=== PATIENT | female | born 1955 | race Caucasian/White ===

== ENCOUNTER → 2016-08-26 | Outpatient (CLI) | payer MEDICAID ==
--- NOTE | 2016-08-29 09:39 | MM ---
Reason for exam: follow-up at short interval from prior study. Last mammogram was performed 9 months ago. History: Patient is postmenopausal. MG discontinued stereo core RT of the right breast, January 01, 2016. Excisional biopsy of the left breast, July 2010. Took estrogen for 3 years. Took progesterone for 3 years. Physical Findings: Nurse did not find any significant physical abnormalities on exam. MG 3D Diag Mammo W/Cad RT CC and MLO view(s) were taken of the right breast. Prior study comparison: November 20, 2015, right breast MG 3d work up w/cad RT. November 06, 2015, bilateral MG 3d screening mammo w/cad. There are scattered fibroglandular densities. There is stable chronic nodularity in the right breast. No significant new findings when compared with previous films. These results were verbally communicated with the patient and result sheet given to the patient on 08/26/16. ASSESSMENT: Benign, BI-RAD 2 RECOMMENDATION: Follow-up diagnostic mammogram of both breasts in 6 months.
== END | disposition home or self-care (01) ==
LOC: RADMAMWWP 14:24
PROVIDERS: ATTEND Obstetrics & Gynecology
DX: R92.8 Other abnormal and inconclusive findings on diagnostic imaging of breast (principal)
CPT/HCPCS: G0206; G0279

== ENCOUNTER → 2017-04-05 | Outpatient (CLI) | payer MEDICAID ==
[2017-04-05 17:01] LABS: Basophils % (A) 0 %; CH 30.4; CHCM 32.6; Eosinophils % (A) 0 %; HDW 2.55; HGB 14.9 gm/dL (11.4-16.0); Luc # (Auto) 0.09; Luc % (Auto) 1; Lymphocytes # (A) 1.2 k/uL (1.0-4.8); Lymphocytes % (A) 11 %; MCH 30.4 pg (25.0-35.0); MCHC 32.4 g/dL (31.0-37.0); MCV 93.9 fL (80.0-100.0); Mean Platelet Volume 7.8; Monocytes # (A) 0.7 k/uL (0-1.0); Monocytes % (A) 6 %; Neutrophils % (A) 81 %; RDW 15.5 % (11.5-15.5); WBC 11.1 k/uL (3.8-10.6); WBC (Perox) 10.87
[2017-04-05 17:26] LABS: ALT 32 U/L (9-52); AST 11 U/L (14-36); Alkaline Phosphatase 77 U/L (38-126); Anion Gap 7 mmol/L; Blood Urea Nitrogen 19 mg/dL (7-17); Calcium 9.9 mg/dL (8.4-10.2); Carbon Dioxide 29 mmol/L (22-30); Chloride 100 mmol/L (98-107); Glucose 100 mg/dL (74-99); Non-African American GFR(MDRD) >60 (>60 ml/min/1.73 sqM); Sodium 136 mmol/L (137-145); Total Bilirubin 0.6 mg/dL (0.2-1.3); Total Protein 7.3 g/dL (6.3-8.2)
== END | disposition home or self-care (01) ==
LOC: LABWHC1 16:08
PROVIDERS: ATTEND Family Medicine
DX: J45.909 Unspecified asthma, uncomplicated (principal); E03.9 Hypothyroidism, unspecified; E55.9 Vitamin D deficiency, unspecified
CPT/HCPCS: 36415; 80053; 82306; 84443; 85025

== ENCOUNTER → 2017-04-19 | Outpatient (CLI) | payer MEDICAID ==
--- NOTE | 2017-04-24 09:03 | MM ---
Reason for exam: follow-up at short interval from prior study. Last mammogram was performed 8 months ago. History: Patient is postmenopausal. MG discontinued stereo core RT of the right breast, January 01, 2016. Excisional biopsy of the left breast, July 2010. Took estrogen for 3 years. Took progesterone for 3 years. Physical Findings: Nurse did not find any significant physical abnormalities on exam. MG 3D Diag Mammo W/Cad ESSIE Bilateral CC and MLO view(s) were taken. Prior study comparison: August 26, 2016, right breast MG 3d diag mammo w/cad RT. November 20, 2015, right breast MG 3d work up w/cad RT. November 20, 2015, right breast US breast workup limited RT. The breast tissue is almost entirely fat. No suspicious abnormality. No significant new findings when compared with previous films. These results were verbally communicated with the patient and result sheet given to the patient on 04/19/17. ASSESSMENT: Negative, BI-RAD 1 RECOMMENDATION: Routine screening mammogram of both breasts in 1 year.
== END | disposition home or self-care (01) ==
LOC: RADMAMWWP 13:46
PROVIDERS: ATTEND Family Medicine
DX: R92.8 Other abnormal and inconclusive findings on diagnostic imaging of breast (principal)
CPT/HCPCS: G0204; G0279

== ENCOUNTER → 2017-11-09 | Outpatient (CLI) | payer MEDICAID ==
--- NOTE | 2017-11-09 08:34 | US ---
EXAMINATION TYPE: US transvaginal DATE OF EXAM: 11/09/2017 COMPARISON: NONE CLINICAL HISTORY: R10.2 Pelvic pain. Partial hysterectomy x 1991. Left side pain. TECHNIQUE: Transvaginal (TV). Date of LMP: Uterus removed EXAM MEASUREMENTS: Right Ovary: 2.3 x 1.0 x 0.8 cm Left Ovary: 1.8 x 0.6 x 0.9 cm 1. Uterus: Surgically absent 2. Endometrium: Surgically absent 3. Right Ovary: wnl 4. Left Ovary: wnl 5. Bilateral Adnexa: wnl 6. Posterior cul-de-sac: No free fluid IMPRESSION: Remnant ovaries are felt unremarkable for postmenopausal female. Uterus is surgically abs ent. No suspicious finding is seen to account for patient's symptoms.
== END | disposition home or self-care (01) ==
LOC: RADUSWWP 07:27
PROVIDERS: ATTEND Obstetrics & Gynecology
DX: R10.2 Pelvic and perineal pain (principal); Z90.711 Acquired absence of uterus with remaining cervical stump
CPT/HCPCS: 76830

== ENCOUNTER → 2018-06-21 | Outpatient (CLI) | payer MEDICAID ==
--- NOTE | 2018-06-21 21:48 | MR ---
EXAMINATION TYPE: MR knee LT wo con DATE OF EXAM: 06/21/2018 COMPARISON: None HISTORY: Left Knee Pain with Swelling x1 Year TECHNIQUE: Multiplanar, multisequence imaging of the left knee is performed without IV contrast. FINDINGS: MEDIAL MENISCUS: There is increased signal within the posterior horn medial meniscus. Anterior horn m edial meniscus appears normal. LATERAL MENISCUS: Anterior and posterior horns are intact without tear. CRUCIATE LIGAMENTS: Posterior cruciate ligament is intact. Anterior cruciate ligament appears intact through its visualized course. The insertion on the tibia has mild increased signal. There is some di ffuse thickening with signal change within the substance of the anterior cruciate ligament on sagitta l T2-weighted sequences. Some strain could be considered. No deviation of the fibers are evident. The re is thickening of the anterior cruciate ligament. COLLATERAL LIGAMENTS: The medial collateral ligament and lateral collateral ligament complex are inta ct and unremarkable. EXTENSOR MECHANISM: Visualized quadriceps and patellar tendons are intact. EFFUSION: No significant suprapatellar joint effusion. POPLITEAL CYST: No popliteal/hyde cyst. TRICOMPARTMENT SPACES: Preserved CARTILAGE: Mild thinning of the articular cartilage is present diffusely. This includes medial latera l compartments. Patellofemoral compartment space articular cartilage appears relatively preserved. BONE MARROW SIGNAL: No focal abnormal marrow signal is appreciated. Note is made of a posterior super ior patellar spur. OTHER: No additional significant abnormality is appreciated. IMPRESSION: 1. Thickening of the anterior cruciate ligament without complete tear. Strain versus partial tear sh ould be considered. 2. Internal derangement posterior horn medial meniscus. 3. Mild osteoarthritic degenerative changes of the articular cartilage.
== END | disposition home or self-care (01) ==
LOC: RADMRIMAIN 20:45
PROVIDERS: ATTEND Family Medicine
DX: M17.12 Unilateral primary osteoarthritis, left knee (principal); M23.322 Other meniscus derangements, posterior horn of medial meniscus, left knee

== ENCOUNTER → 2018-07-11 | Outpatient (CLI) | payer MEDICAID ==
--- NOTE | 2018-07-12 09:12 | XR ---
EXAMINATION TYPE: XR chest 2V DATE OF EXAM: 07/11/2018 COMPARISON: Prior chest x-ray 06/24/2013 HISTORY: Dyspnea on exertion TECHNIQUE: Frontal and lateral views of the chest are obtained. FINDINGS: There is no focal air space opacity, pleural effusion, or pneumothorax seen. The cardiac silhouette size is within normal limits. The osseous structures are intact. IMPRESSION: No acute cardiopulmonary process.
== END | disposition home or self-care (01) ==
LOC: RADXRMAIN 17:26
PROVIDERS: ATTEND Family Medicine
DX: R06.09 Other forms of dyspnea (principal)
CPT/HCPCS: 71046

== ENCOUNTER → 2018-08-06 | Outpatient (CLI) | payer MEDICAID | LOC: LABPAT 11:24 | PROVIDERS: ATTEND Orthopaedic Surgery | DX: Z53.9 Procedure and treatment not carried out, unspecified reason (principal) ==

== ENCOUNTER → 2018-08-06 | Outpatient (CLI) | payer MEDICAID ==
[2018-08-06 12:20] LABS: Basophils % (A) 1 %; Eosinophils # (A) 0.3 k/uL (0-0.7); Eosinophils % (A) 6 %; HCT 41.9 % (34.0-46.0); HGB 13.5 gm/dL (11.4-16.0); Lymphocytes # (A) 1.1 k/uL (1.0-4.8); Lymphocytes % (A) 25 %; MCH 30.1 pg (25.0-35.0); MCHC 32.1 g/dL (31.0-37.0); MCV 93.8 fL (80.0-100.0); Mean Platelet Volume 7.3; Monocytes # (A) 0.2 k/uL (0-1.0); Monocytes % (A) 5 %; Neutrophils # (A) 2.6 k/uL (1.3-7.7); Neutrophils % (A) 62 %; Platelet Count 261 k/uL (150-450); RBC 4.47 m/uL (3.80-5.40); WBC 4.3 k/uL (3.8-10.6)
[2018-08-06 18:44] LABS: Albumin 4.1 g/dL (3.80-4.90); Albumin/Globulin Ratio 1.95 (1.60-3.17); Anion Gap 7.1 mmol/L (4.00-12.00); Calcium 9.5 mg/dL (8.7-10.3); Carbon Dioxide 30.9 mmol/L (21.6-31.8); Globulin 2.1 g/dL (1.6-3.3); LDL Cholesterol,Calculated 152.6 mg/dL (0.0-131.0); Potassium 4.8 mmol/L (3.5-5.5); Total Bilirubin 0.6 mg/dL (0.2-1.2); Total Protein 6.2 g/dL (6.2-8.2); VLDL Calculation 26.4 mg/dL (5.00-40.00)
== END | disposition home or self-care (01) ==
LOC: LABWHC1 11:25
PROVIDERS: ATTEND Family Medicine
DX: E78.00 Pure hypercholesterolemia, unspecified (principal); R06.09 Other forms of dyspnea; E55.9 Vitamin D deficiency, unspecified
CPT/HCPCS: 36415; 80053; 80061; 82306; 84443; 85025

== ENCOUNTER 2018-08-09 09:57 | Day surgery (SDC) | payer MEDICAID ==
[2018-08-06 10:00] VITALS: BMI 29.9
--- NOTE | 2018-08-08 12:59 | HP ---
HISTORY AND PHYSICAL DATE OF SURGERY: 08/09/2018 Dayan Coronel is a 63-year-old patient seen with progressive left knee pain. We discussed treatment options. She elected to proceed with arthroscopy. Consent was obtained. PAST MEDICAL HISTORY: Her past medical history is hypothyroidism, gastroesophageal reflux disease. PAST SURGICAL HISTORY: Colonoscopy, right knee arthroscopy, lumpectomy, total abdominal hysterectomy. DAILY MEDICATIONS: 1. Celebrex. 2. Celexa. 3. Levothyroxine. 4. Singulair. ALLERGIES: PENICILLIN, HYDROCODONE, OXYCODONE, MACROBID, WELLBUTRIN. SOCIAL HISTORY: She denies current tobacco use. PHYSICAL EVALUATION: Physical evaluation of the left knee: Her range of motion is 0 to 125 degrees. There is a mild effusion. Tenderness along the medial joint line. Positive medial Teo's, +1 Kristen. Collateral ligaments stable. There is patellar crepitus on range of motion. Hip rotation without pain. Distal neurovascular exam is intact. Left knee radiographs revealed mild medial and moderate patellofemoral compartment osteoarthritis. An MRI of the left knee revealed abnormal of the medial meniscus as well as the anterior cruciate ligament. IMPRESSION: 1. Internal derangement, left knee with medial meniscal tear. 2. Asthma. 3. Hypothyroidism. PLAN: Left knee arthroscopy with partial meniscectomy and debridement. MMODL / IJN: [id number] /
[~2018-08-09 09:57] MED LIST: DEXAMETHASONE SOD PHOSPHATE 10 MG/ML 1 ML VIAL IV ONE; LACTATED RINGERS 1,000 ML IV SCH; LIDOCAINE 1% 20 ML VIAL (10MG/ML) FOR IV START INTRADERMA PRN; ONDANSETRON 4 MG/2 ML VIAL IVP ONE; SCOPOLAMINE 1.5MG/72HR PATCH TRANSDERM ONE; ceFAZolin IN SWFI 2 GM/20 ML SYRINGE IVP ONE
[2018-08-09] MEDS ORDERED: MIDAZOLAM 2 MG/2 ML VIAL ONE (11:14)
[2018-08-09] MEDS ORDERED: fentaNYL (PF) 50 MCG/ML 2 ML AMP ONE (11:14)
[2018-08-09] MEDS ORDERED: PROPOFOL 10 MG/ML 20 ML VIAL IV ONE (11:14)
[2018-08-09] MEDS ORDERED: LIDOCAINE 1% INJ 10MG/ML (20 ML MDV) ONE (11:14)
[2018-08-09] MEDS ORDERED: SUCCINYLCHOLINE CHLORIDE 100 MG/5 ML SYR IV ONE (11:14)
[2018-08-09] MEDS ORDERED: BUPIVACAINE (PF) 0.25% 30 ML VIAL SQ ONE ×2 (11:18→11:22)
[2018-08-09 12:20] VITALS: TEMP 97.2
--- NOTE | 2018-08-09 12:24 | P.OP ---
Date of Procedure: 08/09/18 Preoperative Diagnosis: Internal derangement left knee Postoperative Diagnosis: 1. Tear medial meniscus left knee 2. Grade 2/3 chondromalacia medial femoral condyle left knee 3. Reactive synovitis medial, lateral and suprapatellar compartments left knee Procedure(s) Performed: 1. Arthroscopic partial medial meniscectomy left knee 2. Arthroscopic chondroplasty medial femoral condyle left knee 3. Arthroscopic partial synovectomy medial, lateral and suprapatellar compartments left knee Anesthesia: GETA, local Surgeon: Kenrick Benitez Estimated Blood Loss (ml): 5 Pathology: none sent Condition: stable Disposition: PACU Indications for Procedure: 63-year-old patient seen with progressive left knee pain. After treatment options were discussed, she elected to proceed with arthroscopy. Operative Findings: See description of procedure Description of Procedure: Patient was taken to the operative suite. Patient underwent a general anesthetic by the department of anesthesia. Patient was given preoperative antibiotics. The left lower extremity was placed in a well-padded arthroscopic leg rios. The left leg was prepped and draped in the normal sterile orthopedic fashion. A lateral parapatellar and suprapatellar incision was made. Trochars were inserted. Arthroscopy was initiated. Suprapatellar pouch veal diffuse thick reactive synovitis. The patellofemoral joint appeared to articulate congruently. There was grade 1 chondromalacia with no osteochondral tears present. The scope was guided into the medial gutter. No loose body or plica were identified. The scope was then guided into the medial compartment. A medial parapatellar incision was made. Trocar inserted followed by probe. There was a complex tear involving the posterior horn medial meniscus. There were grade 2/3 chondromalacia changes of the medial femoral condyle with diffuse osteochondral tears present. There was reactive synovitis anteriorly. I performed a partial medial meniscectomy getting down to stable meniscal tissue. I performed a chondroplasty of the medial femoral condyle down to stable tissue. I performed a partial synovectomy decompressing reactive synovitis. The residual meniscus was stable. The residual osteochondral surface appears stable. There was good decompression of the reactive synovitis. Scope and probe were then guided into the intercondylar notch. Cruciates were identified, probed and found to be stable. The scope and probe were then guided into lateral compartment. Lateral meniscus was probed and found be stable. The lateral femoral condyle and tibial plateau. Unremarkable. There was thick reactive synovitis anteriorly. I performed a partial synovectomy decompressing that reactive synovitis lateral compartment. There was good decompression of the synovitis. The scope was in guided back into the suprapatellar compartment. I introduced a motorized shaver into the suprapatellar compartment. I debrided some piecemeal fragments of meniscus I encountered. I performed a partial synovectomy decompressing the thick reactive synovitis in the suprapatellar compartment. There was good decompression of the synovitis. I took one more look around the entire knee, no residual debris. Instruments were now removed from the joint. The joint was infiltrated with .25% Marcaine. Steri-Strips were applied to the portal sites. Sterile dressings were applied. The patient was placed into a PIEDAD hose. No tourniquet was utilized. The patient was awakened, transferred to a bed and taken to recovery stable satisfactory condition.
[2018-08-09] MEDS: fentaNYL (PF) 50 MCG/ML 2 ML AMP IV PRN ×3 (12:25→12:59)
[2018-08-09] MEDS ORDERED: Acetaminophen-Codeine 300-30mg TAB PO ONE (13:35)
[2018-08-09 14:24] VITALS: BP 131/82; PULSE 85; RESP 16
== END 2018-08-09 14:45 | disposition home or self-care (01) ==
LOC: OR 09:57
PROVIDERS: ATTEND Orthopaedic Surgery
DX: S83.232A Complex tear of medial meniscus, current injury, left knee, initial encounter (principal); M94.262 Chondromalacia, left knee; M65.88 Other synovitis and tenosynovitis, other site; E03.9 Hypothyroidism, unspecified; K21.9 Gastro-esophageal reflux disease without esophagitis; J45.909 Unspecified asthma, uncomplicated; F41.9 Anxiety disorder, unspecified; M17.12 Unilateral primary osteoarthritis, left knee; Z79.890 Hormone replacement therapy; Z79.899 Other long term (current) drug therapy; Z88.5 Allergy status to narcotic agent; Z88.0 Allergy status to penicillin; Z88.8 Allergy status to other drugs, medicaments and biological substances
CPT/HCPCS: 29881; 29876; J2250; J1100; J2405; J2001; J3010; J0330; J2704; J0690

== ENCOUNTER → 2018-09-21 | Outpatient (CLI) | payer MEDICAID ==
--- NOTE | 2018-09-23 14:51 | MR ---
EXAMINATION TYPE: MR knee LT wo con DATE OF EXAM: 09/21/2018 COMPARISON: MRI of the left knee dated 06/21/2018 HISTORY: Pain in left knee, Meniscus repair 3-2018 TECHNIQUE: Multiplanar, multisequence imaging of the left knee is performed without IV contrast. FINDINGS: MEDIAL MENISCUS: There remains obliquely oriented increased PD signal within the posterior horn of th e medial meniscus as seen on the prior exam of 06/21/2018 however this patient is status post meniscal repair and this may be postoperative in nature. Blunting of the free edge is likely from a meniscect sylvia. LATERAL MENISCUS: Anterior and posterior horns are intact without tear. However there is slight incre ased signal of the anterior root of the lateral meniscus, likely meniscal myxoid degeneration. CRUCIATE LIGAMENTS: The anterior and posterior cruciate ligaments are intact with signal of the anter ior cruciate ligament throughout. COLLATERAL LIGAMENTS: The medial collateral ligament and lateral collateral ligament complex are inta ct and unremarkable. EXTENSOR MECHANISM: Visualized quadriceps and patellar tendons are intact. EFFUSION: There is a new small to moderate suprapatellar joint effusion without significant internal complexity. POPLITEAL CYST: No popliteal/hyde cyst. TRICOMPARTMENT SPACES: Very mild medial compartment joint space narrowing is seen. Tricompartmental s mall osteophytes are present. CARTILAGE: Partial-thickness cartilaginous defect of the medial femoral condyle at its weightbearing surface measures 1.8 cm. Partial-thickness chondral defect of the lateral compartment also within the weightbearing surface measures 7 mm. Subchondral cystic change is seen of the patella as there is a full-thickness cartilaginous defect of the medial facet measuring approximately 1.3 cm and focal fissuring of the lateral facet. Trochlear cartilage is slightly heterogenous. BONE MARROW SIGNAL: There is new bone marrow edema of the medial femoral condyle in comparison to the prior exam. Cranial caudal extent of 2.7 cm in anterior posterior extent of 3.8 cm. Bone marrow nupur a is also seen of the medial femoral condyle posteriorly and is new. OTHER: The medial patellofemoral retinaculum at its posterior aspect appears discontinuous however t here is no significant undulation. Focal mild overlying subcutaneous edema is noted. No lateral shetty lar tracking. Some high signal is seen of the semimembranosus with surrounding fluid and of the popli teus tendon. IMPRESSION: 1. New 2.7 x 3.8 cm area of bone marrow edema of the medial femoral condyle and small area of bone ma rrow edema in the posterior medial tibial plateau. 2. New small to moderate suprapatellar joint effusion. 3. Mild tricompartmental arthrosis and moderate chondrosis with full-thickness cartilaginous defect o f the medial patellar facet and partial thickness cartilaginous defects of the medial femoral condyle and to a lesser degree at the lateral femoral condyle. 4. Similar increased signal of the medial meniscus however given the recent surgical intervention fin dings are likely on the basis of partial meniscectomy. 5. Similar increased signal throughout the anterior cruciate ligament favors mid to high-grade sprain .
== END | disposition home or self-care (01) ==
LOC: RADMRIMAIN 16:27
PROVIDERS: ATTEND Orthopaedic Surgery
DX: M17.12 Unilateral primary osteoarthritis, left knee (principal); M94.8X6 Other specified disorders of cartilage, lower leg; R93.6 Abnormal findings on diagnostic imaging of limbs

== ENCOUNTER → 2018-10-01 | Outpatient (CLI) | payer MEDICAID ==
--- NOTE | 2018-10-03 08:42 | MM ---
Reason for exam: screening (asymptomatic). Last mammogram was performed 1 year and 5 months ago. History: Patient is postmenopausal. MG discontinued stereo core RT of the right breast, January 01, 2016. Excisional biopsy of the right breast, July 2010. Took estrogen for 3 years. Took progesterone for 3 years. Physical Findings: A clinical breast exam by your physician is recommended on an annual basis and results should be correlated with mammographic findings. MG 3D Screening Mammo W/Cad Bilateral CC and MLO view(s) were taken. Prior study comparison: April 19, 2017, bilateral MG 3d diag mammo w/cad ESSIE. August 26, 2016, right breast MG 3d diag mammo w/cad RT. There are scattered fibroglandular densities. No significant changes when compared with prior studies. ASSESSMENT: Negative, BI-RAD 1 RECOMMENDATION: Routine screening mammogram of both breasts in 1 year.
--- NOTE | 2018-10-03 16:39 | BD ---
EXAMINATION TYPE: Axial Bone Density DATE OF EXAM: 10/01/2018 COMPARISON: 11.20.2015 CLINICAL HISTORY: 63 YR OLD FEMALE...ICD-10 CODE: M89.9 DISORDER OF BONE Height: 63.9 Weight: 184 FRAX RISK QUESTIONS: Glucocorticoids (More than 3mos): YES, FOR ASTHMA (Ex: prednisone, prednisolone, methylprednisolone, dexamethasone, and hydrocortisone). History of Fracture in Adulthood: YES RISK FACTORS HISTORY OF: HX OF RT FOOT FRACTURE Family History of Osteoporosis: YES HER PATERNAL AUNTS, Postmenopausal woman: HYST AT 37 YRS OLD, HORMONAL ABOUT 50 YRS OLD Take estrogen and/or progesterone medications: HORMONES IN THE PAST FOR ABOUT 8YRS, ESTRADIAL CREAM N OW FOR ABOUT A YEAR MEDICATIONS: Prednisone or other steroids: INHALER FOR ASTHMA, QVAR, FOR MANY YRS Thyroid Medications: YES, SYNTHROID, FOR ABOUT 10 + YRS Additional Medications: CELEXA AND XANAX PM, REFLUX MEDS PRN, Additional History: ASTHMA, EXAM MEASUREMENTS: Bone mineral densitometry was performed using the [employer] System. Bone mineral density as measured about the Lumbar spine is: ----- L1-L4(G/cm2): 1.158 T Score Values are as follows: ----- L1: -0.6 ----- L2: -0.4 ----- L3: 0.4 ----- L4: 1.0 ----- L1-L4: 0.2 Bone mineral density has: Increased 11.3% since study of: 10.29.2015 Bone mineral density about the R hip (g/cm2): 0.825 Bone mineral density about the L hip (g/cm2): 0.897 T Score values are as follows: -----R Neck: -1.6 -----L Neck: -1.3 -----R Total: -1.4 -----L Total: -0.9 Bone mineral density has: Decreased -0.3% since study of: 10.29.2015 FRAX%s: THERE IS A 22.2% CHANCE FOR A MAJOR OSTEOPOROTIC FX AND A 2.7% FOR HIP.....PROBABILITY OF F X IN 10 YRS TIME IMPRESSION: Osteopenia (T Score between -2.5 and -1). There is slightly increased risk of fracture and the patient may be considered for treatment. Re-Screen 2-5 years. NOTE: T-SCORE=SD OF THE YOUNG ADULT MEAN.
== END ==
LOC: RADMAMWWP 14:39
PROVIDERS: ATTEND Obstetrics & Gynecology
DX: Z12.31 Encounter for screening mammogram for malignant neoplasm of breast (principal); M89.9 Disorder of bone, unspecified; M85.80 Other specified disorders of bone density and structure, unspecified site
CPT/HCPCS: 77063; 77067; 77080

== ENCOUNTER → 2018-10-25 | Outpatient (CLI) | payer MEDICAID ==
[2018-10-25 14:12] LABS: Basophils # (A) 0.1 k/uL (0-0.2); Basophils % (A) 1 %; Eosinophils # (A) 0.3 k/uL (0-0.7); Eosinophils % (A) 6 %; HCT 41.7 % (34.0-46.0); HGB 13.7 gm/dL (11.4-16.0); Lymphocytes % (A) 18 %; MCH 29.9 pg (25.0-35.0); MCV 90.6 fL (80.0-100.0); Mean Platelet Volume 7.8; Monocytes # (A) 0.4 k/uL (0-1.0); Monocytes % (A) 7 %; Neutrophils # (A) 3.8 k/uL (1.3-7.7); Neutrophils % (A) 67 %; Platelet Count 288 k/uL (150-450); RDW 14.2 % (11.5-15.5); WBC 5.7 k/uL (3.8-10.6)
[2018-10-25 14:18] LABS: INR 0.9 (<1.2); Partial Thromboplastin Time 24.9 sec (22.0-30.0); Prothrombin Time 9.7 sec (9.0-12.0)
[2018-10-25 14:27] LABS: Potassium 4.4 mmol/L (3.5-5.1)
== END | disposition home or self-care (01) ==
LOC: LABPAT 13:29
PROVIDERS: ATTEND Orthopaedic Surgery
DX: Z01.812 Encounter for preprocedural laboratory examination (principal); E03.9 Hypothyroidism, unspecified
CPT/HCPCS: 80051; 84443; 85025; 85610; 85730; 87070

== ENCOUNTER 2018-11-05 11:19 | Observation (INO) | payer MEDICAID ==
[2018-10-29 15:52] VITALS: BMI 30.9
--- NOTE | 2018-11-04 21:09 | HP ---
HISTORY AND PHYSICAL REASON FOR ADMISSION: Surgery is scheduled for 11/05/2018. Dayan Woo is a 63-year-old patient seen with symptomatic left knee osteoarthritis. We discussed treatment options. She elected to proceed left total knee arthroplasty. Consent was obtained. Medical clearance provided by Dr. Anette Diza. PAST MEDICAL HISTORY: Hypothyroidism, gastroesophageal reflux disease, anxiety, asthma. PAST SURGICAL HISTORY: Right knee arthroscopy. Colonoscopy, lumpectomy, total abdominal hysterectomy. MEDICATIONS: Celexa, levothyroxine, Singulair, ibuprofen. ALLERGIES: PENICILLIN, EFFEXOR, OXYCODONE, MACROBID, WELLBUTRIN. SOCIAL HISTORY: She denies tobacco use. PHYSICAL EXAMINATION: Evaluation of the left knee range of motion is 0 to 120 degrees. There is a mild effusion. Tenderness medial joint line. Crepitus medial and patellofemoral compartments with range of motion. Pain with patellofemoral compression. Ligaments stable. Hip rotation without pain. Distal neurovascular exam is intact. RADIOGRAPHS: Left knee radiographs revealed moderate osteoarthritic changes. Left knee MRI revealed full-thickness cartilage defects of the patella, medial femoral condyle. IMPRESSION: 1. Symptomatic left knee osteoarthritis. 2. Hypothyroidism. 3. Asthma. 4. Gastroesophageal reflux disease. PLAN: Left total knee arthroplasty. Surgery scheduled for 11/05/2018. MMODL / IJN: [id number] /
[~2018-11-05 11:19] MED LIST changes: +ACETAMINOPHEN TAB 500 MG TAB PO ONE; -LACTATED RINGERS 1,000 ML IV SCH; +MELOXICAM 7.5 MG TAB PO ONE; +TRANEXAMIC ACID 1,000 MG in SODIUM CHLORIDE 0.9% 100 ML IVPB ONE
[2018-11-05] MEDS ORDERED: MIDAZOLAM (PF) 2 MG/2 ML VIAL IVP ONE (12:05)
[2018-11-05] MEDS: LACTATED RINGERS 1,000 ML IV SCH ×2 (12:20→22:28)
[2018-11-05] MEDS ORDERED: ROPIVACAINE 246.25 MG, EPINEPHrine 0.5 MG, KETOROLAC 30 MG, cloNIDine HCL/PF 80 MCG, WA... MISCELLANE ONE ×5 (12:31)
[2018-11-05] MEDS ORDERED: SUCCINYLCHOLINE CHLORIDE 100 MG/5 ML SYR IV ONE (13:15)
[2018-11-05] MEDS ORDERED: LIDOCAINE 1% INJ 10MG/ML (20 ML MDV) ONE (13:15)
[2018-11-05] MEDS ORDERED: TRANEXAMIC ACID 1,000 MG/10 ML VIAL ONE (13:15)
[2018-11-05] MEDS ORDERED: PROPOFOL 10 MG/ML 20 ML VIAL IV ONE (13:15)
[2018-11-05] MEDS ORDERED: fentaNYL (PF) 50 MCG/ML 2 ML AMP ONE (13:15)
[2018-11-05] MEDS ORDERED: PHENYLEPHRINE-0.9% NACL SYG 1 MG/10 ML SYRINGE ONE (13:15)
[2018-11-05] MEDS ORDERED: MIDAZOLAM 2 MG/2 ML VIAL ONE (13:15)
[2018-11-05] MEDS ORDERED: SODIUM CHLORIDE 0.9% 100 ML BAG ONE (13:15)
[2018-11-05] MEDS ORDERED: ceFAZolin 3,000 MG in SODIUM CHLORIDE 0.9% IRRIGATIO 3,000 ML IRRIGATION ONE (13:49)
[2018-11-05] MEDS ORDERED: LACTATED RINGERS 1,000 ML IV ONE (14:32)
[2018-11-05] MEDS ORDERED: NALOXONE 0.4 MG/ML 1 ML VIAL IV PRN (15:03)
[2018-11-05] MEDS ORDERED: HYDROcodone/APAP 5-325MG 1 EACH TAB PO PRN ×2 (15:03)
[2018-11-05] MEDS ORDERED: HYDROmorphone 1 MG/ML 1 ML SYRINGE IVP PRN (15:03)
[2018-11-05] MEDS ORDERED: HYDROmorphone 0.5 MG/0.5 ML SYRINGE IVP PRN (15:03)
[2018-11-05] MEDS ORDERED: ONDANSETRON 4 MG/2 ML VIAL IVP PRN (15:03)
--- NOTE | 2018-11-05 15:03 | P.OP ---
Date of Procedure: 11/05/18 Preoperative Diagnosis: Left knee osteoarthritis Postoperative Diagnosis: Left knee osteoarthritis Procedure(s) Performed: Left total knee arthroplasty Implants: 1. Microport evolution size 4 left MP cemented femur 2. Microport evolution size 4 left cemented tibial baseplate 3. Microport evolution MP/CS 10 mm polyethylene tibial insert 4. Microport advance 29 mm all polyethylene cemented patella Anesthesia: GETA, regional (Adductor canal catheter), local Surgeon: Kenrick Benitez Clay Machine Operator #1: Skinny Zaidi Estimated Blood Loss (ml): 50 Pathology: other (Bone) Condition: stable Disposition: PACU Indications for Procedure: 63-year-old patient seen with symptomatic left knee osteoarthritis. After having treatment options discussed, she elected to proceed with left total knee arthroplasty. Operative Findings: see description of procedure Description of Procedure: Patient was taken to the operative suite after having an adductor canal catheter placed by the department of anesthesia for postoperative pain management. Patient underwent a general anesthetic by the department of anesthesia. Patient was given preoperative IV intake antibiotics and TXA. A well-padded tourniquet was placed about the left lower extremity. The lower extremity was then prepped and draped in the normal sterile orthopedic fashion. The extremity was elevated, a tourniquet was insufflated to 300. A standard anterior incision was made sharply through skin. Dissection was taken down through the subcutaneous soft tissues down to the extensor mechanism. A medial arthrotomy was performed, patella was everted and knee was flexed. There was advanced osteoarthritis noted. I introduced my distal intramedullary femoral drill. I then introduced the distal femoral cutting jig. Kyle KNOWLES secured the cutting jig with 2 pins. I held retractors in position while Kyle KNOWLES performed the distal femoral resection through the guide area we now removed her distal femoral cutting guide. We now placed our 4-in-1 femoral cutting block and positioned and it was secured with 2 pins by Kyle KNOWLES while I held the block in position. The distal femoral finishing was now completed. A proximal tibial cutting guide was positioned. I held the guide in the appropriate position with both hands well Kyle KNOWLES inserted stabilizing pins into the guide. Proxim al tibial cut was made. We now placed a trial femoral component into position, along with an appropriate size tibial tray and insert. We now took the knee through range of motion and had full extension good flexion and good overall soft tissue balance noted. The patella was everted and stabilized with 2 towel clips held by Kyle KNOWLES while I performed a flush with patellar quad tendon utilizing a fresh sawblade. We templated the patella, appropriate drill holes were made. An appropriate trial patella was positioned, knee was taken through full range of motion with the patella tracking very nicely. The trial patella was removed. Drill holes were made through the femoral component. All trial components were removed after marking off the appropriate rotation of the tibia. Retractors were now positioned along the proximal tibia. An appropriate keel punch was made with the appropriate size tibial guide by myself on Kyle KNOWLES assisted by holding retractors. At this point appropriate size implants were chosen and opened. The joint was irrigated copiously with pulse lavage mechanical irrigation. The posterior capsule was infiltrated with local analgesic. The wound was irrigated with pulse lavage mechanical irrigation. We mixed antibiotic methylmethacrylate. We placed the knee into flexion. We placed multiple retractors assisted by Kyle KNOWLES to expose the proximal tibia. Once the methyl methacrylate was ready, the tibial component was cemented into place removing any excess methylmethacrylate form by both myself and Kyle KNOWLES. The femoral component was cemented into place removing the removing any excess methylmethacrylate performed by both myself and Kyle KNOWLES. We then inserted the appropriate size polyethylene tibial insert. We made sure that it was locked into position. We took the knee into full extension, and then back in a flexion making sure we had removed any excess methylmethacrylate. The patellar component was then cemented down and secured with clamp. Excess methylmethacrylate removed. We kept the knee in full extension, patellar clamp in position until methylmethacrylate had hardened. Once it had hardened the patellar clamp was removed. The knee was taken through full range of motion. The patella tracked nicely. There was good soft tissue balancing. The tourniquet was now released. Additional hemostasis was achieved via electrocautery. A second gram of TXA was given. The wound again was irrigated with pulse lavage mechanical irrigation. The superficial soft tissues were infiltrated local analgesic. The extensor mechanism was repaired with Vicryl. We checked the repair with range of motion and it was stable. The subcutaneous soft tissues were repaired with Vicryl in layers. The skin was a pproximated with pernio/Dermabond. Sterile dressings were applied followed by loose web roll and Bryon bandage. The patient was transferred to a bed, and taken to recovery in stable and satisfactory condition. Kyle KNOWLES assisted with this complex procedure.
[2018-11-05] MEDS ORDERED: ROPIVACAINE 1,100 MG, SODIUM CHLORIDE 0.9% 500 ML 330 ML MISCELLANE PRN ×2 (15:05)
[2018-11-05] MEDS: HYDROmorphone 0.5 MG/0.5 ML SYRINGE IVP PRN ×5 (15:42→22:29)
--- NOTE | 2018-11-05 15:48 | XR ---
EXAMINATION TYPE: XR knee limited LT DATE OF EXAM: 11/05/2018 COMPARISON: NONE TECHNIQUE: Two views submitted HISTORY: Post op FINDINGS: There is a prosthetic knee in near anatomic alignment. There is soft tissue edema and emphysema. IMPRESSION: 1. Postoperative change. Appears in near-anatomic alignment
[2018-11-05] MEDS ORDERED: fentaNYL (PF) 50 MCG/ML 2 ML AMP IV ONE (16:10)
--- NOTE | 2018-11-05 20:52 | P.ANPRN ---
Procedure Note - Anesthesia - Nerve Block Performed Left Adductor Canal Infusion Time Out Performed: Yes Date of Procedure: 11/05/18 Procedure Start Time: 12:06 Procedure Stop Time: 12:17 Location of Patient Procedure: PreOp Indication: Acute Post-Operative Pain, Requested by physician Sedation Type: Sedate with meaningful contact maintained Preparation: Sterile Prep, Sterile Dressing Position: Supine Catheter: Indwelling Needle Types: Pajunk Needle Gauge: 21 Technique: Ultrasound (ropi .5% 20cc) Blood Aspirated: No Pain Paresthesia on Injection Noted: No Resistance on Injection: Normal Events: Uneventful and Well Tolerated
[2018-11-05] MEDS ORDERED: SENNOSIDES-DOCUSATE SODIUM 1 EACH TAB PO SCH (21:00)
[2018-11-05] MEDS ORDERED: ALBUTEROL NEBULIZED 2.5 MG/3 ML INHALATION PRN (21:26)
[2018-11-05] MEDS ORDERED: ALPRAZolam 1 MG TAB PO SCH (21:30)
[2018-11-05] MEDS: ENOXAPARIN 30 MG/0.3 ML SYRINGE SQ SCH (22:13)
[2018-11-05] MEDS: MONTELUKAST 10 MG TAB PO SCH (22:28)
[2018-11-05] MEDS: ceFAZolin IN SWFI 2 GM/20 ML SYRINGE IVP SCH (22:28)
[2018-11-06] MEDS: HYDROmorphone 0.5 MG/0.5 ML SYRINGE IVP PRN ×4 (01:07→11:37)
[2018-11-06] MEDS: ceFAZolin IN SWFI 2 GM/20 ML SYRINGE IVP SCH (04:12)
[2018-11-06] MEDS: LACTATED RINGERS 1,000 ML IV SCH ×2 (06:18)
[2018-11-06] MEDS ORDERED: LEVOTHYROXINE 75 MCG TAB PO SCH (06:30)
--- NOTE | 2018-11-06 06:58 | P.PN ---
Progress Note - Text 10/30 650am 63 yr old female s/p tkr by Dr Benitez,pt hs a on-q pump for post op pain control with a vas of 4. plan to continue on-q pump infusion.
[2018-11-06] MEDS: ENOXAPARIN 30 MG/0.3 ML SYRINGE SQ SCH (07:45)
[2018-11-06] MEDS: MONTELUKAST 10 MG TAB PO SCH (07:45)
[2018-11-06] MEDS ORDERED: Acetaminophen-Codeine 300-30mg TAB PO PRN (07:55)
[2018-11-06 08:25] VITALS: BP 111/67; PULSE 65; RESP 16; TEMP 97.9
[2018-11-06] MEDS ORDERED: CITALOPRAM HYDROBROMIDE 20 MG TAB PO SCH (09:00)
[2018-11-06] MEDS ORDERED: MELOXICAM 7.5 MG TAB PO SCH (09:00)
[2018-11-06 09:53] LABS: Basophils % (A) 0 %; Eosinophils # (A) 0.1 k/uL (0-0.7); Eosinophils % (A) 0 %; HCT 31.1 % (34.0-46.0); Lymphocytes # (A) 1.5 k/uL (1.0-4.8); Lymphocytes % (A) 12 %; MCH 30.1 pg (25.0-35.0); MCHC 32.9 g/dL (31.0-37.0); MCV 91.4 fL (80.0-100.0); Mean Platelet Volume 7.9; Monocytes # (A) 0.8 k/uL (0-1.0); Monocytes % (A) 6 %; Neutrophils # (A) 10.1 k/uL (1.3-7.7); Neutrophils % (A) 80 %; Platelet Count 235 k/uL (150-450); RBC 3.41 m/uL (3.80-5.40); RDW 13.9 % (11.5-15.5); WBC 12.6 k/uL (3.8-10.6)
[2018-11-06 10:21] LABS: HGB 10.3 gm/dL (11.4-16.0)
--- NOTE | 2018-11-06 12:01 | P.PN ---
Subjective Progress Note Date: 11/06/18 Principal diagnosis: Status post left total knee arthroplasty Patient evaluated bedside today, she is resting comfortably. She's done well with therapy. She denies any fever, chills, chest pain or shortness of breath. Objective - Vital Signs Vital signs: Vital Signs Temp 97.9 F 11/06/18 07:30 Pulse 65 11/06/18 07:30 Resp 16 11/06/18 07:30 BP 111/67 11/06/18 07:30 Pulse Ox 97 11/06/18 07:30 Intake & Output 11/05/18 11/06/18 11/06/18 18:59 06:59 18:59 Intake Total 1401 2080 Output Total 50 Balance 1351 2080 Weight 83.178 kg Intake: IV 1401 Intake, IV Titration 1000 Amount Lactated Ringers 1,000 ml 1000 @ 100 mls/hr IV .Q10H LILIBETH Rx#:[id number] Oral 1080 Output: Estimated Blood Loss 50 Other: Voiding Method Toilet # Voids 2 - Exam Left lower extremity: Incision is clean, dry, and intact. The exofin fusion tape is in good condition. There is minimal soft tissue swelling and ecchymosis surrounding the medial and lateral aspects of the incision. Calf is soft, no tenderness with palpation. Plantar flexion, dorsiflexion, EHL, FHL are intact. Sensory exam to light touch throughout the extremity is intact, dorsal pedis pulses 2+. - Labs CBC & Chem 7: 11/06/18 09:24 Labs: Abnormal Lab Results - Last 24 Hours (Table) 11/06/18 Range/Units 09:24 WBC 12.6 H (3.8-10.6) k/uL RBC 3.41 L (3.80-5.40) m/uL Hgb 10.3 L D (11.4-16.0) gm/dL Hct 31.1 L (34.0-46.0) % Neutrophils # 10.1 H (1.3-7.7) k/uL Assessment and Plan Plan: Assessment: Postoperative day #1 status post left total knee arthroplasty Plan: Pain control, patient will utilize anti-inflammatories and Tylenol 3 GI and DVT prophylaxis, aspirin 81 mg twice a day Wound care instructions discussed Home physical therapy and nursing after discharge Medical recommendations Discharge planning: Patient will be discharged home today Time with Patient: Less than 30
--- NOTE | 2018-11-06 12:07 | P.DS ---
Providers Date of admission: 11/06/18 01:47 Expected date of discharge: 11/06/18 Attending physician: Kenrick Benitez Consults: 11/05/18 15:03 Consult Physician Routine Consulting Provider: Mayo Ma Consult Reason/Comments: Medical management Do you want consulting provider notified?: Yes Primary care physician: Josep Healy Bradley Hospital Course: Date of admission: 11/05/2018 Date of discharge: 11/06/2018 Admission diagnosis: Status post left total knee arthroplasty Discharge diagnosis: Same Attending physician: Dr. Benitez Surgical procedures: Left total knee arthroplasty Brief history: Patient is a 63-year-old female with a history of progressive primary left knee osteoarthritis. At this point patient has failed conservative treatment measures and has opted to proceed with a elective left total knee arthroplasty. Hospital course: Details of patient's surgery can be found in operative report. Patient tolerated the procedure well and was subsequently transported to orthopedic floor. Patient's orthopeidc and medical care was provided daily. Patient had daily laboratory tests performed for evaluation of overall blood counts. Patient had daily physical therapy to include strengthening range of motion as well as education with walker ambulation. Patient had daily CPM usage as part of their physical therapy program. Patient was treated with Lovenox for their postoperative DVT prophylaxis during their inpatient stay. Patient was noted to have a relatively uneventful postoperative course. Patient reported satisfactory pain control with oral pain medications by postoperative day 0. Patient showed satisfactory progress with physical therapy. Patient moved steadily through the program and had no difficulty meeting the goals by postoperative day 1. Given patient's otherwise satisfactory course and having met physical therapy goals, plan is to discharge patient home on postoperative day 1. Discharge condition/disposition: Patient will be discharged home in stable condition. Discharge medications: Instructions are given on resumption of patient's normal daily medications per primary care recommendation, in addition patient will be p rescribed aspirin 81 mg, Tylenol No. 3. Discharge instructions: 1. Wound care and infection precautions, keep incision dry and covered while showering, no lotions, creams, moisturizers. No soaking, tubs, pools, hottubs. Do not scrub over the incision. 2. Weight-bear as tolerated with walker / cane until follow-up. 3. Ice and elevate when necessary. Do not exceed 20 minutes per hour with ice pack. 4. Utilize compression sleeve until seen at first follow up appointment. 5. Visiting nursing care. 6. Home physical therapy including home CPM. 7. Pain meds and anticoagulants per prescription. 8. Pain medication has potential to cause constipation. Increase oral fluid and fiber intake. Contact primary care provider if you have not had a bowel movement within 48 hours after discharge 9. No anti-inflammatory medication until discussed at first post operative visit, this including Motrin, Aleve, Mobic, Diclofenac. 10. Follow up in office at 2 weeks postop with Kyle Zaidi PA-C 11. Follow up with your primary care doctor 7-10 days after discharge. 12. Contact [facility] with any questions, . Procedures: Left total knee arthroplasty Patient Condition at Discharge: Good Plan - Discharge Summary Discharge Rx Participant: No New Discharge Prescriptions: New Aspirin [Adult Low Dose Aspirin EC] 81 mg PO BID #60 tablet. Acetaminophen-Codeine 300-30mg [Tylenol w/codeine #3] 1 - 2 tab PO Q6H PRN #56 tablet PRN Reason: Pain No Action Albuterol Sulfate [Proair Hfa] 2 puff INHALATION RT-Q4H PRN PRN Reason: Shortness Of Breath Montelukast Sodium [Singulair] 10 mg PO DAILY Citalopram Hydrobromide [CeleXA] 20 mg PO DAILY ALPRAZolam [Xanax] 1 mg PO HS Cyclobenzaprine [Flexeril] 5 mg PO DAILY PRN PRN Reason: Muscle Pain Ibuprofen [Motrin] 800 mg PO TID Levothyroxine Sodium [Synthroid] 75 mcg PO DAILY Discharge Medication List Albuterol Sulfate [Proair Hfa] 2 puff INHALATION RT-Q4H PRN 01/06/14 [History] Citalopram Hydrobromide [CeleXA] 20 mg PO DAILY 01/06/14 [History] Montelukast Sodium [Singulair] 10 mg PO DAILY 01/06/14 [History] ALPRAZolam [Xanax] 1 mg PO HS 08/06/18 [History] Cyclobenzaprine [Flexeril] 5 mg PO DAILY PRN 10/29/18 [History] Ibuprofen [Motrin] 800 mg PO TID 10/29/18 [History] Acetaminophen-Codeine 300-30mg [Tylenol w/codeine #3] 1 - 2 tab PO Q6H PRN #56 tablet 11/06/18 [Rx] Aspirin [Adult Low Dose Aspirin EC] 81 mg PO BID #60 tablet. 11/06/18 [Rx] Levothyroxine Sodium [Synthroid] 75 mcg PO DAILY 11/06/18 [History] Follow up Appointment(s)/Referral(s): Josep Diaz MD [Primary Care Provider] - 1 Week Residential Home,Health [NON-STAFF] - Skinny Zaidi PAC [PHYSICIAN LAB INSTRUCTOR] - 2 Weeks Activity/Diet/Wound Care/Special Instructions: *Please call [facility] once home to arrange delivery of continuous passive motion (CPM) [id number] - [phone] [facility] will deliver walker to the bedside before discharge. Orthopedic Discharge Instructions: 1. Wound care and infection precautions, keep incision dry and covered while showering, no lotions, creams, moisturizers. No soaking, pools, hot tubs. Do not scrub over incision. 2. Weight-bear as tolerated with walker / cane until follow-up. 3. Ice and elevate when necessary. Do not exceed 20 minutes per hour with ice pack. 4. Utilize compression sleeve until seen at first follow up appointment. 5. Pain meds and anticoagulants per prescription. 6. Pain medication has potential to cause constipation. Increase oral fluid and fiber intake. Contact primary care provider if you have not had a bowel movement within 48 hours after discharge. 8. Follow up in office at 2 weeks postop with Kyle Zaidi PA-C 9. Follow up with your primary care doctor 7-10 days after discharge. 10. Contact [facility] with any questions, . Discharge Disposition: HOME WITH HOME HEALTH SERVICES
--- NOTE | 2018-11-06 15:34 | P.CONS ---
History of Present Illness - Reason for Consult Consult date: 11/06/18 Medical management - History of Present Illness This is a 63-year-old female patient of Dr. Diaz with past medical history of mild persistent asthma, gastroesophageal reflux disease, osteoarthritis, hypothyroidism, degenerative disc disease of the lumbar. Patient has been brought into the hospital dr. levine status post left knee arthroplasty. patient has had no postop complications and is scheduled for [facility] today. Review of Systems All systems: negative Constitutional: Denies chills, Denies fever Eyes: denies blurred vision, denies pain Ears, nose, mouth and throat: Denies headache, Denies sore throat Cardiovascular: Denies chest pain, Denies shortness of breath Respiratory: Denies cough Gastrointestinal: Denies abdominal pain, Denies diarrhea, Denies nausea, Denies vomiting Genitourinary: Denies dysuria, Denies hematuria Musculoskeletal: Denies myalgias Integumentary: Denies pruritus, Denies rash Neurological: Denies numbness, Denies weakness Psychiatric: Denies anxiety, Denies depression Endocrine: Denies fatigue, Denies weight change Past Medical History Past Medical History: Asthma, GERD/Reflux, Osteoarthritis (OA), Thyroid Disorder Additional Past Medical History / Comment(s): hypothyroid, DDD History of Any Multi-Drug Resistant Organisms: None Reported Past Surgical History: Back Surgery, Breast Surgery, Hysterectomy, Tubal Ligation Additional Past Surgical History / Comment(s): rt knee scope , ganglion cyst, right eye blocked tear duct back surgery to remove scar tissue, right breast sammy mpectomy Past Anesthesia/Blood Transfusion Reactions: No Reported Reaction Past Psychological History: Anxiety, Depression Smoking Status: Never smoker Past Alcohol Use History: None Reported Past Drug Use History: None Reported - Past Family History Mother Family Medical History: Cancer Additional Family Medical History / Comment(s): lyphoma Father Family Medical History: AFIB, Cancer, CVA/TIA Additional Family Medical History / Comment(s): Father from lung cancer. He also had history of coronary artery disease, CVA, atrial fibrillation. Brother(s) Additional Family Medical History / Comment(s): Patient does not have any brothers and sisters. Patient has 1 daughter and 2 sons with no major medical problems. Medications and Allergies Home Medications Medication Instructions Recorded Confirmed Type Albuterol Sulfate [Proair Hfa] 2 puff INHALATION RT-Q4H PRN 01/06/14 11/06/18 History Citalopram Hydrobromide [CeleXA] 20 mg PO DAILY 01/06/14 11/06/18 History Montelukast Sodium [Singulair] 10 mg PO DAILY 01/06/14 11/06/18 History ALPRAZolam [Xanax] 1 mg PO HS 08/06/18 11/06/18 History Cyclobenzaprine [Flexeril] 5 mg PO DAILY PRN 10/29/18 11/06/18 History Ibuprofen [Motrin] 800 mg PO TID 10/29/18 11/06/18 History Acetaminophen-Codeine 300-30mg 1 - 2 tab PO Q6H PRN #56 tablet 11/06/18 Rx [Tylenol w/codeine #3] Aspirin [Adult Low Dose Aspirin EC] 81 mg PO BID #60 tablet. 11/06/18 Rx Levothyroxine Sodium [Synthroid] 75 mcg PO DAILY 11/06/18 11/06/18 History Allergies Allergy/AdvReac Type Severity Reaction Status Date / Time bupropion [From Wellbutrin] Allergy Rash/Hives Verified 11/06/18 06:53 Penicillins Allergy Rash/Hives Verified 11/06/18 06:53 hydrocodone AdvReac Itching Verified 11/06/18 06:53 nitrofurantoin AdvReac Itching Verified 11/06/18 06:53 [From Macrobid] nitrofurantoin AdvReac Itching Verified 11/06/18 06:53 macrocrystalline [From Macrobid] oxycodone [Oxycodone] AdvReac FLU LIKE Verified 11/06/18 06:53 SYMPTOMS tramadol AdvReac FLU LIKE Verified 11/06/18 06:53 SYMPTOMS trazodone AdvReac SEVERE DRY Verified 11/06/18 06:53 MOUTH venlafaxine HCl AdvReac Chest Pain Verified 11/06/18 06:53 [From Effexor] Physical Exam Vitals: Vital Signs Temp Pulse Resp BP Pulse Ox 11/06/18 07:30 97.9 F 65 16 111/67 97 11/06/18 02:28 97.7 F 76 17 109/68 96 11/05/18 21:12 98.0 F 103 H 19 107/70 92 L 11/05/18 17:47 97.7 F 97 16 127/78 95 11/05/18 16:45 91 16 130/67 98 11/05/18 16:30 96 16 129/72 98 11/05/18 16:15 86 16 133/69 98 11/05/18 16:00 89 16 131/68 97 11/05/18 15:46 92 16 138/72 100 Intake and Output 11/06/18 11/06/18 11/06/18 06:59 14:59 22:59 Intake Total 2079 Balance 2079 Intake: Intake, IV Titration 1000 Amount Lactated Ringers 1,000 ml 1000 @ 100 mls/hr IV .Q10H LILIBETH Rx#:[id number] Oral 1080 Other: # Voids 2 Gen: This is a 63-year-old female. She is resting bed and appears to be comfortable and in no acute distress. HEENT: Head is atraumatic, normocephalic. Pupils equal, round. Sclerae is anicteric. NECK: Supple. No JVD. No lymphadenopathy. No thyromegaly. LUNGS: Clear to auscultation. No wheezes or rhonchi. No intercostal retractions. HEART: Regular rate and rhythm. No murmur. ABDOMEN: Soft. Bowel sounds are present. No masses. No tenderness. EXTREMITIES: No pedal edema. No calf tenderness. Small dressing in place of the left knee with no breakthrough bleeding. NEUROLOGICAL: Patient is awake, alert and oriented x3. Cranial nerves 2 through 12 are grossly intact. Results CBC & Chem 7: 11/06/18 09:24 Labs: Abnormal Lab Results - Last 24 Hours (Table) 11/06/18 Range/Units 09:24 WBC 12.6 H (3.8-10.6) k/uL RBC 3.41 L (3.80-5.40) m/uL Hgb 10.3 L D (11.4-16.0) gm/dL Hct 31.1 L (34.0-46.0) % Neutrophils # 10.1 H (1.3-7.7) k/uL Assessment and Plan Plan: 1. Osteoarthritis status post left knee arthroplasty. No postoperative complications. Patient is scheduled for discharge home today. She is on baby aspirin twice daily for DVT prophylaxis. 2. Mild intermittent asthma. Continue pro-air as needed and Singulair. 3. Hypothyroidism. Continue levothyroxine 75 g daily. 4. Degenerative disc disease. Continue Flexeril 5 mg daily as needed, Motrin as needed. 5. Generalized anxiety disorder. Continue Xanax at bedtime as needed. Discharge plan: Home Impression and plan of care have been directed as dictated by the signing physician. Joellen Galan nurse practitioner acting as scribe for signing physician.
== END 2018-11-06 13:52 | disposition home health service (06) ==
LOC: OR 11:19 → 4SSUR 17:20 → OR 11-06 02:02
PROVIDERS: ADMIT Orthopaedic Surgery; ATTEND Orthopaedic Surgery
DX: M17.12 Unilateral primary osteoarthritis, left knee (principal); E03.9 Hypothyroidism, unspecified; K21.9 Gastro-esophageal reflux disease without esophagitis; F41.1 Generalized anxiety disorder; J45.30 Mild persistent asthma, uncomplicated; F32.9 Major depressive disorder, single episode, unspecified; M51.36 Other intervertebral disc degeneration, lumbar region; F34.1 Dysthymic disorder; G47.00 Insomnia, unspecified; Z79.899 Other long term (current) drug therapy; Z79.890 Hormone replacement therapy; Z79.1 Long term (current) use of non-steroidal anti-inflammatories (NSAID); Z79.51 Long term (current) use of inhaled steroids; Z79.82 Long term (current) use of aspirin; Z79.891 Long term (current) use of opiate analgesic; Z88.0 Allergy status to penicillin; Z88.5 Allergy status to narcotic agent; Z88.8 Allergy status to other drugs, medicaments and biological substances; Z88.1 Allergy status to other antibiotic agents; Z82.49 Family history of ischemic heart disease and other diseases of the circulatory system; Z82.3 Family history of stroke; Z80.1 Family history of malignant neoplasm of trachea, bronchus and lung; Z83.3 Family history of diabetes mellitus
CPT/HCPCS: 85025; 88300

== ENCOUNTER 2018-12-14 13:43 | Emergency (ER) | payer MEDICAID ==
[2018-12-14 13:48] VITALS: RESP 18
--- NOTE | 2018-12-14 14:27 | XR ---
EXAMINATION TYPE: XR foot complete RT DATE OF EXAM: 12/14/2018 COMPARISON: 01/06/2014 HISTORY: Pain TECHNIQUE: Three views are submitted. FINDINGS: The osseous structures are intact. There is no acute fracture or dislocation. Calcaneal spur noted . Arthropathy of the first MTP joint. There is suggestion of a remote fracture which involves the bas e of the fifth metatarsal. Remains a subtle fracture line which has sclerotic margins compatible with incomplete healing or chronic stress injury. IMPRESSION: 1. Deformity involving the base of the fifth metatarsal most typical of remote fracture. See above.
--- NOTE | 2018-12-14 14:31 | ED ---
Lower Extremity Injury HPI - General Chief Complaint: Extremity Injury, Lower Stated Complaint: Foot injury Source: patient Mode of arrival: wheelchair Limitations: no limitations - History of Present Illness Initial Comments: 63 yo female presented for right foot pain. Patient states that all physical therapy she was stating her tiptoes and felt a pop in her right foot and pain. He had the right fifth digit mid foot. Patient states that she has had a previous fracture in this area. Patient states she has had pain weightbearing. She denies any pain at the ankle. Denies any numbness tingling or loss sensation. She denies any bruising lacerations or abrasions. Patient denies any fall trauma to the head and neck or back. Remaining review of systems negative - Related Data Home Medications Medication Instructions Recorded Confirmed Albuterol Sulfate [Proair Hfa] 2 puff INHALATION RT-Q4H PRN 01/06/14 11/06/18 Citalopram Hydrobromide [CeleXA] 20 mg PO DAILY 01/06/14 11/06/18 Montelukast Sodium [Singulair] 10 mg PO DAILY 01/06/14 11/06/18 ALPRAZolam [Xanax] 1 mg PO HS 08/06/18 11/06/18 Cyclobenzaprine [Flexeril] 5 mg PO DAILY PRN 10/29/18 11/06/18 Ibuprofen [Motrin] 800 mg PO TID 10/29/18 11/06/18 Levothyroxine Sodium [Synthroid] 75 mcg PO DAILY 11/06/18 11/06/18 Previous Rx's Medication Instructions Recorded Acetaminophen-Codeine 300-30mg 1 - 2 tab PO Q6H PRN #56 tablet 11/06/18 [Tylenol w/codeine #3] Aspirin [Adult Low Dose Aspirin EC] 81 mg PO BID #60 tablet. 11/06/18 Allergies Allergy/AdvReac Type Severity Reaction Status Date / Time bupropion [From Wellbutrin] Allergy Rash/Hives Verified 11/06/18 06:53 Penicillins Allergy Rash/Hives Verified 11/06/18 06:53 hydrocodone AdvReac Itching Verified 11/06/18 06:53 nitrofurantoin AdvReac Itching Verified 11/06/18 06:53 [From Macrobid] nitrofurantoin AdvReac Itching Verified 11/06/18 06:53 macrocrystalline [From Macrobid] oxycodone [Oxycodone] AdvReac FLU LIKE Verified 11/06/18 06:53 SYMPTOMS tramadol AdvReac FLU LIKE Verified 11/06/18 06:53 SYMPTOMS trazodone AdvReac SEVERE DRY Verified 11/06/18 06:53 MOUTH venlafaxine HCl AdvReac Chest Pain Verified 11/06/18 06:53 [From Effexor] Review of Systems ROS Statement: Those systems with pertinent positive or pertinent negative responses have been documented in the HPI. ROS Other: All systems not noted in ROS Statement are negative. Past Medical History Past Medical History: Asthma, GERD/Reflux, Osteoarthritis (OA), Thyroid Disorder Additional Past Medical History / Comment(s): hypothyroid, DDD History of Any Multi-Drug Resistant Organisms: None Reported Past Surgical History: Back Surgery, Breast Surgery, Hysterectomy, Tubal Ligation Additional Past Surgical History / Comment(s): rt knee scope , ganglion cyst, right eye blocked tear duct back surgery to remove scar tissue, right breast lumpectomy, L knee Past Anesthesia/Blood Transfusion Reactions: No Reported Reaction Past Psychological History: Anxiety, Depression Smoking Status: Never smoker Past Alcohol Use History: None Reported Past Drug Use History: None Reported - Past Family History Mother Family Medical History: Cancer Father Family Medical History: Cancer Brother(s) Additional Family Medical History / Comment(s): Patient does not have any brothers and sisters. Patient has 1 daughter and 2 sons with no major medical problems. General Exam - General Exam Comments Initial Comments: General: The patient is awake and alert, in no distress, and does not appear acutely ill. Eye: Pupils are equal, round and reactive to light, extra-ocular movements are intact. No nystagmus. There is normal conjunctiva bilaterally. No signs of icterus. Ears, nose, mouth and throat: There are moist mucous membranes and no oral lesions. Neck: The neck is supple, there is no tenderness or JVD. Cardiovascular: There is a regular rate and rhythm. No murmur, rub or gallop is appreciated. Respiratory: Lungs are clear to auscultation, respirations are non-labored, breath sounds are equal. No wheezes, stridor, rales, or rhonchi. Musculoskeletal: No soft tissue abnormalities of the right foot in comparison the left. Normal ROM, no tenderness. Strength 5/5. Sensation intact both proximal and distal to injury stie. DP pulses equal bilaterally 2+. No bruising the plantar aspect noted. Patient tender to palpation over the fifth metatarsal there is no tenderness over the first through fourth digits of the foot including the Lisfranc area, No pain to palpation of the ankle or with inversion eversion at the right ankle. Neurological: A&O x 3. CN II-XII intact, There are no obvious motor or sensory deficits. Coordination appears grossly intact. Speech is normal. Skin: Skin is warm and dry and no rashes or lesions are noted. Psychiatric: Cooperative, appropriate mood & affect, normal judgment. Limitations: no limitations Course Vital Signs 12/14/18 12/14/18 13:45 15:18 Temperature 98.5 F 98.4 F Pulse Rate 84 79 Respiratory 18 18 Rate Blood Pressure 144/91 137/99 O2 Sat by Pulse 98 Oximetry Medical Decision Making - Medical Decision Making 63yo female with history of fifth metatarsal fracture presented for chief complaint of right lateral foot pain. Patient states occurred after standing on her tiptoes. Patient has tenderness localized the fifth metatarsal. Imaging studies reveals a remote fracture. Unable to see if there is an acute fracture. Patient was placed in a posterior mold splint. Given nonweightbearing instructions, if tolerated (given recent left TKA). Patient had vastly intact. Both prior and after splint placed. Return parameters were discussed at length, as well as importance of f/u with orthopedic surgery. Patient is agreeable with care plan and discharge. I did discuss case with Dr. Hardy prior to discharge--he is agreeable with plan. Disposition Clinical Impression: Fracture of fifth metatarsal bone of right foot Disposition: HOME SELF-CARE Condition: Good Instructions (If sedation given, give patient instructions): Foot Fracture in Adults (ED) Additional Instructions: Please use medication as discussed. Please follow-up with your orthopedic surgery in next week. No weight bearing, please use crutches for ambulating until evaluated. Please return to emergency room if the symptoms increase or worsen or for any other concerns. Is patient prescribed a controlled substance at d/c from ED?: No Referrals: Josep Diaz MD [Primary Care Provider] - 1-2 days Kenrick Benitez DO [Doctor of Osteopathic Medicine] - 1-2 days Time of Disposition: 14:30
[2018-12-14 15:20] VITALS: BP 137/99; PULSE 79; TEMP 98.4
== END 2018-12-14 15:18 | disposition home or self-care (01) ==
LOC: EC 13:43
DX: S92.351A Displaced fracture of fifth metatarsal bone, right foot, initial encounter for closed fracture (principal); J45.909 Unspecified asthma, uncomplicated; K21.9 Gastro-esophageal reflux disease without esophagitis; M19.90 Unspecified osteoarthritis, unspecified site; E03.9 Hypothyroidism, unspecified; F32.9 Major depressive disorder, single episode, unspecified; F41.9 Anxiety disorder, unspecified; Z79.1 Long term (current) use of non-steroidal anti-inflammatories (NSAID); Z79.890 Hormone replacement therapy; Z79.899 Other long term (current) drug therapy; Z88.0 Allergy status to penicillin; Z88.1 Allergy status to other antibiotic agents; Z88.5 Allergy status to narcotic agent; Z88.8 Allergy status to other drugs, medicaments and biological substances; Z96.652 Presence of left artificial knee joint; X58.XXXA Exposure to other specified factors, initial encounter
CPT/HCPCS: 29515; 99283

== ENCOUNTER → 2020-05-08 | Outpatient (CLI) | payer MEDICAID ==
--- NOTE | 2020-05-11 11:44 | MM ---
Reason for exam: screening (asymptomatic). Last mammogram was performed 1 year and 7 months ago. History: Patient is postmenopausal. MG discontinued stereo core RT of the right breast, January 01, 2016. Excisional biopsy of the right breast, July 2010. Took estrogen for 3 years. Took progesterone for 3 years. Physical Findings: A clinical breast exam by your physician is recommended on an annual basis and results should be correlated with mammographic findings. MG 3D Screening Mammo W/Cad Bilateral CC and MLO view(s) were taken. Prior study comparison: October 01, 2018, bilateral MG 3d screening mammo w/cad. April 19, 2017, bilateral MG 3d diag mammo w/cad ESSIE. There are scattered fibroglandular densities. There is no discrete abnormality. No significant changes when compared with prior studies. ASSESSMENT: Negative, BI-RAD 1 RECOMMENDATION: Routine screening mammogram of both breasts in 1 year.
== END | disposition home or self-care (01) ==
LOC: RADMAMWWP 15:34
PROVIDERS: ATTEND Obstetrics & Gynecology
DX: Z12.31 Encounter for screening mammogram for malignant neoplasm of breast (principal)
CPT/HCPCS: 77063; 77067